=== PATIENT | male | born 1945 | race Hispanic/Latino ===

== ENCOUNTER 2022-01-11 12:53 | Outpatient (CLI) | payer SELFPAY, MEDICARE | END 2022-01-11 12:54 | disposition home or self-care (01) | LOC: CSHWCC 12:53 | PROVIDERS: ATTEND Nurse Practitioner Family | DX: T81.89XD Other complications of procedures, not elsewhere classified, subsequent encounter (principal) ==

== ENCOUNTER 2022-01-13 08:13 | Outpatient (CLI) | payer SELFPAY, MEDICARE | END 2022-01-13 08:14 | disposition home or self-care (01) | LOC: CSHWCC 08:13 | PROVIDERS: ATTEND Nurse Practitioner Family | DX: T81.89XD Other complications of procedures, not elsewhere classified, subsequent encounter (principal) ==

== ENCOUNTER 2022-01-16 13:37 | Outpatient (CLI) | payer SELFPAY, MEDICARE | END 2022-01-16 13:38 | disposition home or self-care (01) | LOC: CSHWCC 13:37 | PROVIDERS: ATTEND Nurse Practitioner Family | DX: T81.89XD Other complications of procedures, not elsewhere classified, subsequent encounter (principal); L89.891 Pressure ulcer of other site, stage 1; R60.0 Localized edema ==

== ENCOUNTER 2022-01-19 10:14 | Outpatient (CLI) | payer SELFPAY, MEDICARE | END 2022-01-19 10:15 | disposition home or self-care (01) | LOC: CSHWCC 10:14 | PROVIDERS: ATTEND Nurse Practitioner Family | DX: T81.89XD Other complications of procedures, not elsewhere classified, subsequent encounter (principal); L89.891 Pressure ulcer of other site, stage 1; R60.0 Localized edema ==

== ENCOUNTER 2022-01-27 08:07 | Outpatient (CLI) | payer MEDICARE | END 2022-01-27 08:08 | disposition home or self-care (01) | LOC: CSHWCC 08:07 | PROVIDERS: ATTEND Nurse Practitioner Family | DX: T81.89XD Other complications of procedures, not elsewhere classified, subsequent encounter (principal) | CPT/HCPCS: 11042; 36416; 87070; 87077; 87186; 87205; 99213; G0463 ==

== ENCOUNTER 2022-01-30 08:07 | Outpatient (CLI) | payer MEDICARE, SELFPAY | END 2022-01-30 08:08 | disposition home or self-care (01) | LOC: CSHWCC 08:07 | PROVIDERS: ATTEND Nurse Practitioner Family | DX: T87.89 Other complications of amputation stump (principal); L89.92 Pressure ulcer of unspecified site, stage 2; L89.891 Pressure ulcer of other site, stage 1; E11.621 Type 2 diabetes mellitus with foot ulcer; L97.424 Non-pressure chronic ulcer of left heel and midfoot with necrosis of bone; R60.0 Localized edema; Z89.422 Acquired absence of other left toe(s) | CPT/HCPCS: 36416 ==

== ENCOUNTER 2022-01-31 10:59 | Outpatient (CLI) | payer SELFPAY | END 2022-01-31 11:00 | disposition home or self-care (01) | LOC: CSHWCC 10:59 | PROVIDERS: ATTEND Nurse Practitioner Family | DX: T81.89XD Other complications of procedures, not elsewhere classified, subsequent encounter (principal); L89.891 Pressure ulcer of other site, stage 1; R60.0 Localized edema; L89.92 Pressure ulcer of unspecified site, stage 2 | CPT/HCPCS: 36416 ==

== ENCOUNTER 2022-02-01 08:13 | Outpatient (CLI) | payer SELFPAY | END 2022-02-01 08:14 | disposition home or self-care (01) | LOC: CSHWCC 08:13 | PROVIDERS: ATTEND Nurse Practitioner Family | DX: T81.89XD Other complications of procedures, not elsewhere classified, subsequent encounter (principal); E11.621 Type 2 diabetes mellitus with foot ulcer; L97.424 Non-pressure chronic ulcer of left heel and midfoot with necrosis of bone; L89.92 Pressure ulcer of unspecified site, stage 2; R60.0 Localized edema | CPT/HCPCS: 36416 ==

== ENCOUNTER 2022-02-02 11:43 | Outpatient (CLI) | payer SELFPAY | END 2022-02-02 11:44 | disposition home or self-care (01) | LOC: CSHWCC 11:43 | PROVIDERS: ATTEND Nurse Practitioner Family | DX: T81.89XD Other complications of procedures, not elsewhere classified, subsequent encounter (principal); E11.621 Type 2 diabetes mellitus with foot ulcer; L97.424 Non-pressure chronic ulcer of left heel and midfoot with necrosis of bone ==

== ENCOUNTER 2022-02-03 11:39 | Outpatient (CLI) | payer SELFPAY | END 2022-02-03 11:40 | disposition home or self-care (01) | LOC: CSHWCC 11:39 | PROVIDERS: ATTEND Nurse Practitioner Family | DX: T81.89XD Other complications of procedures, not elsewhere classified, subsequent encounter (principal); L89.891 Pressure ulcer of other site, stage 1; R60.0 Localized edema | CPT/HCPCS: 11042; 11045; 97605 ==

== ENCOUNTER 2022-02-06 09:02 | Outpatient (CLI) | payer SELFPAY | END 2022-02-06 09:03 | disposition home or self-care (01) | LOC: CSHWCC 09:02 | PROVIDERS: ATTEND Nurse Practitioner Family | DX: L89.891 Pressure ulcer of other site, stage 1 (principal); L89.92 Pressure ulcer of unspecified site, stage 2; T81.89XD Other complications of procedures, not elsewhere classified, subsequent encounter; E11.621 Type 2 diabetes mellitus with foot ulcer; L97.425 Non-pressure chronic ulcer of left heel and midfoot with muscle involvement without evidence of necrosis; R60.0 Localized edema | CPT/HCPCS: 29581; 97605 ==

== ENCOUNTER 2022-02-10 08:54 | Outpatient (CLI) | payer SELFPAY | END 2022-02-10 08:55 | disposition home or self-care (01) | LOC: CSHWCC 08:54 | PROVIDERS: ATTEND Nurse Practitioner Family | DX: L89.892 Pressure ulcer of other site, stage 2 (principal); L89.891 Pressure ulcer of other site, stage 1; T81.89XD Other complications of procedures, not elsewhere classified, subsequent encounter; E11.621 Type 2 diabetes mellitus with foot ulcer; L97.425 Non-pressure chronic ulcer of left heel and midfoot with muscle involvement without evidence of necrosis; R60.0 Localized edema ==

== ENCOUNTER 2022-02-14 13:05 | Outpatient (CLI) | payer SELFPAY | END 2022-02-14 13:06 | disposition home or self-care (01) | LOC: CSHWCC 13:05 | PROVIDERS: ATTEND Nurse Practitioner Family | DX: L89.92 Pressure ulcer of unspecified site, stage 2 (principal); L89.891 Pressure ulcer of other site, stage 1; T81.89XD Other complications of procedures, not elsewhere classified, subsequent encounter; E11.621 Type 2 diabetes mellitus with foot ulcer; L97.425 Non-pressure chronic ulcer of left heel and midfoot with muscle involvement without evidence of necrosis; R60.0 Localized edema ==

== ENCOUNTER 2022-02-17 11:21 | Outpatient (CLI) | payer SELFPAY | END 2022-02-17 11:22 | disposition home or self-care (01) | LOC: CSHWCC 11:21 | PROVIDERS: ATTEND Nurse Practitioner Family | DX: L89.892 Pressure ulcer of other site, stage 2 (principal); L89.891 Pressure ulcer of other site, stage 1; T81.89XD Other complications of procedures, not elsewhere classified, subsequent encounter; E11.621 Type 2 diabetes mellitus with foot ulcer; L97.425 Non-pressure chronic ulcer of left heel and midfoot with muscle involvement without evidence of necrosis; R60.0 Localized edema | CPT/HCPCS: 11042; 97605 ==

== ENCOUNTER 2022-02-27 14:58 | Outpatient (CLI) | payer SELFPAY | END 2022-02-27 14:59 | disposition home or self-care (01) | LOC: CSHWCC 14:58 | PROVIDERS: ATTEND Nurse Practitioner Family | DX: T81.89XD Other complications of procedures, not elsewhere classified, subsequent encounter (principal); L89.891 Pressure ulcer of other site, stage 1; R60.0 Localized edema | CPT/HCPCS: 29581 ==

== ENCOUNTER 2022-03-10 08:32 | Outpatient (CLI) | payer SELFPAY | END 2022-03-10 08:33 | disposition home or self-care (01) | LOC: CSHWCC 08:32 | PROVIDERS: ATTEND Nurse Practitioner Family | DX: T81.89XD Other complications of procedures, not elsewhere classified, subsequent encounter (principal); L89.92 Pressure ulcer of unspecified site, stage 2; E11.621 Type 2 diabetes mellitus with foot ulcer; L97.425 Non-pressure chronic ulcer of left heel and midfoot with muscle involvement without evidence of necrosis; R60.0 Localized edema | CPT/HCPCS: 29581; 97605; 99213; G0463 ==

== ENCOUNTER 2022-03-15 09:59 | Outpatient (CLI) | payer SELFPAY | END 2022-03-15 10:00 | disposition home or self-care (01) | LOC: CSHWCC 09:59 | PROVIDERS: ATTEND Preventive Medicine Undersea and Hyperbaric Medicine | DX: T81.89XD Other complications of procedures, not elsewhere classified, subsequent encounter (principal); L89.92 Pressure ulcer of unspecified site, stage 2; R60.0 Localized edema | CPT/HCPCS: 11042; 97605 ==

== ENCOUNTER 2022-03-24 08:05 | Outpatient (CLI) | payer SELFPAY | END 2022-03-24 08:06 | disposition home or self-care (01) | LOC: CSHWCC 08:05 | PROVIDERS: ATTEND Preventive Medicine Undersea and Hyperbaric Medicine | DX: L89.92 Pressure ulcer of unspecified site, stage 2 (principal); T81.89XD Other complications of procedures, not elsewhere classified, subsequent encounter; E11.621 Type 2 diabetes mellitus with foot ulcer; L97.425 Non-pressure chronic ulcer of left heel and midfoot with muscle involvement without evidence of necrosis; R60.0 Localized edema ==

== ENCOUNTER 2022-03-27 11:17 | Outpatient (CLI) | payer SELFPAY | END 2022-03-27 11:18 | disposition home or self-care (01) | LOC: CSHWCC 11:17 | PROVIDERS: ATTEND Preventive Medicine Undersea and Hyperbaric Medicine | DX: L89.92 Pressure ulcer of unspecified site, stage 2 (principal); E11.621 Type 2 diabetes mellitus with foot ulcer; L97.425 Non-pressure chronic ulcer of left heel and midfoot with muscle involvement without evidence of necrosis; R60.0 Localized edema | CPT/HCPCS: 97605 ==

== ENCOUNTER 2022-04-05 14:25 | Outpatient (CLI) | payer MEDICARE, SELFPAY | END 2022-04-05 14:26 | disposition home or self-care (01) | LOC: CSHWCC 14:25 | PROVIDERS: ATTEND Preventive Medicine Undersea and Hyperbaric Medicine | DX: L89.92 Pressure ulcer of unspecified site, stage 2 (principal); E11.621 Type 2 diabetes mellitus with foot ulcer; L97.425 Non-pressure chronic ulcer of left heel and midfoot with muscle involvement without evidence of necrosis; R60.0 Localized edema | CPT/HCPCS: 11042; 36416; 97605 ==

== ENCOUNTER 2022-04-19 08:34 | Outpatient (CLI) | payer SELFPAY | END 2022-04-19 08:35 | disposition home or self-care (01) | LOC: CSHWCC 08:34 | PROVIDERS: ATTEND Preventive Medicine Undersea and Hyperbaric Medicine | DX: L89.92 Pressure ulcer of unspecified site, stage 2 (principal); E11.621 Type 2 diabetes mellitus with foot ulcer; L97.425 Non-pressure chronic ulcer of left heel and midfoot with muscle involvement without evidence of necrosis; R60.0 Localized edema ==

== ENCOUNTER 2022-04-25 08:10 | Outpatient (CLI) | payer SELFPAY | END 2022-04-25 08:11 | disposition home or self-care (01) | LOC: CSHWCC 08:10 | PROVIDERS: ATTEND Preventive Medicine Undersea and Hyperbaric Medicine | DX: L89.622 Pressure ulcer of left heel, stage 2 (principal); E11.621 Type 2 diabetes mellitus with foot ulcer; L97.425 Non-pressure chronic ulcer of left heel and midfoot with muscle involvement without evidence of necrosis; R60.0 Localized edema | CPT/HCPCS: 29581; 97605 ==

== ENCOUNTER 2022-05-02 13:24 | Outpatient (CLI) | payer SELFPAY | END 2022-05-02 13:25 | disposition home or self-care (01) | LOC: CSHWCC 13:24 | PROVIDERS: ATTEND Nurse Practitioner Family | DX: L89.92 Pressure ulcer of unspecified site, stage 2 (principal); E11.621 Type 2 diabetes mellitus with foot ulcer; L97.425 Non-pressure chronic ulcer of left heel and midfoot with muscle involvement without evidence of necrosis; R60.0 Localized edema | CPT/HCPCS: 11042; 36416; 97605 ==

== ENCOUNTER 2022-05-17 08:33 | Outpatient (CLI) | payer SELFPAY | END 2022-05-17 08:34 | disposition home or self-care (01) | LOC: CSHWCC 08:33 | PROVIDERS: ATTEND Nurse Practitioner Family | DX: L89.92 Pressure ulcer of unspecified site, stage 2 (principal); E11.621 Type 2 diabetes mellitus with foot ulcer; L97.425 Non-pressure chronic ulcer of left heel and midfoot with muscle involvement without evidence of necrosis; R60.0 Localized edema | CPT/HCPCS: 36416 ==

== ENCOUNTER 2022-06-05 13:31 | Outpatient (CLI) | payer SELFPAY | END 2022-06-05 13:32 | disposition home or self-care (01) | LOC: CSHWCC 13:31 | PROVIDERS: ATTEND Nurse Practitioner Family | DX: L89.92 Pressure ulcer of unspecified site, stage 2 (principal); E11.621 Type 2 diabetes mellitus with foot ulcer; L97.425 Non-pressure chronic ulcer of left heel and midfoot with muscle involvement without evidence of necrosis; R60.0 Localized edema ==

== ENCOUNTER 2022-06-09 10:25 | Outpatient (CLI) | payer SELFPAY | END 2022-06-09 10:26 | disposition home or self-care (01) | LOC: CSHWCC 10:25 | PROVIDERS: ATTEND Nurse Practitioner Family | DX: L89.92 Pressure ulcer of unspecified site, stage 2 (principal); E11.621 Type 2 diabetes mellitus with foot ulcer; L97.425 Non-pressure chronic ulcer of left heel and midfoot with muscle involvement without evidence of necrosis; R60.0 Localized edema | CPT/HCPCS: 29581 ==

== ENCOUNTER 2022-06-12 09:30 | Outpatient (CLI) | payer SELFPAY | END 2022-06-12 09:31 | disposition home or self-care (01) | LOC: CSHWCC 09:30 | PROVIDERS: ATTEND Nurse Practitioner Family | DX: L89.92 Pressure ulcer of unspecified site, stage 2 (principal); E11.621 Type 2 diabetes mellitus with foot ulcer; L97.425 Non-pressure chronic ulcer of left heel and midfoot with muscle involvement without evidence of necrosis; R60.0 Localized edema | CPT/HCPCS: 29581 ==

== ENCOUNTER 2022-06-15 13:50 | Outpatient (CLI) | payer SELFPAY | END 2022-06-15 13:51 | disposition home or self-care (01) | LOC: CSHWCC 13:50 | PROVIDERS: ATTEND Nurse Practitioner Family | DX: L89.92 Pressure ulcer of unspecified site, stage 2 (principal); E11.621 Type 2 diabetes mellitus with foot ulcer; L97.425 Non-pressure chronic ulcer of left heel and midfoot with muscle involvement without evidence of necrosis; R60.0 Localized edema ==

== ENCOUNTER 2022-06-22 09:01 | Outpatient (CLI) | payer SELFPAY | END 2022-06-22 09:02 | disposition home or self-care (01) | LOC: CSHWCC 09:01 | PROVIDERS: ATTEND Nurse Practitioner Family | DX: L89.92 Pressure ulcer of unspecified site, stage 2 (principal); E11.621 Type 2 diabetes mellitus with foot ulcer; L97.425 Non-pressure chronic ulcer of left heel and midfoot with muscle involvement without evidence of necrosis; R60.0 Localized edema ==

== ENCOUNTER 2022-06-29 08:40 | Outpatient (CLI) | payer SELFPAY | END 2022-06-29 08:41 | disposition home or self-care (01) | LOC: CSHWCC 08:40 | PROVIDERS: ATTEND Nurse Practitioner Family | DX: L89.92 Pressure ulcer of unspecified site, stage 2 (principal); E11.621 Type 2 diabetes mellitus with foot ulcer; L97.425 Non-pressure chronic ulcer of left heel and midfoot with muscle involvement without evidence of necrosis; R60.0 Localized edema | CPT/HCPCS: 87070; 87077; 87186; 87205 ==

== ENCOUNTER 2022-07-06 13:38 | Outpatient (CLI) | payer SELFPAY | END 2022-07-06 13:39 | disposition home or self-care (01) | LOC: CSHWCC 13:38 | PROVIDERS: ATTEND Nurse Practitioner Family | DX: L89.92 Pressure ulcer of unspecified site, stage 2 (principal); E11.621 Type 2 diabetes mellitus with foot ulcer; L97.425 Non-pressure chronic ulcer of left heel and midfoot with muscle involvement without evidence of necrosis; R60.0 Localized edema ==

== ENCOUNTER 2022-07-13 08:07 | Outpatient (CLI) | payer SELFPAY | END 2022-07-13 08:08 | disposition home or self-care (01) | LOC: CSHWCC 08:07 | PROVIDERS: ATTEND Nurse Practitioner Family | DX: L89.92 Pressure ulcer of unspecified site, stage 2 (principal); E11.621 Type 2 diabetes mellitus with foot ulcer; L97.425 Non-pressure chronic ulcer of left heel and midfoot with muscle involvement without evidence of necrosis; R60.0 Localized edema ==

== ENCOUNTER 2022-07-20 09:09 | Outpatient (CLI) | payer SELFPAY | END 2022-07-20 09:10 | disposition home or self-care (01) | LOC: CSHWCC 09:09 | PROVIDERS: ATTEND Nurse Practitioner Family | DX: L89.92 Pressure ulcer of unspecified site, stage 2 (principal); E11.621 Type 2 diabetes mellitus with foot ulcer; L97.425 Non-pressure chronic ulcer of left heel and midfoot with muscle involvement without evidence of necrosis; R60.0 Localized edema ==

== ENCOUNTER 2022-07-27 09:15 | Outpatient (CLI) | payer SELFPAY | END 2022-07-27 09:16 | disposition home or self-care (01) | LOC: CSHWCC 09:15 | PROVIDERS: ATTEND Nurse Practitioner Family | DX: L89.92 Pressure ulcer of unspecified site, stage 2 (principal); E11.621 Type 2 diabetes mellitus with foot ulcer; L97.425 Non-pressure chronic ulcer of left heel and midfoot with muscle involvement without evidence of necrosis; R60.0 Localized edema | CPT/HCPCS: 29581 ==

== ENCOUNTER 2022-08-03 08:39 | Outpatient (CLI) | payer SELFPAY | END 2022-08-03 08:40 | disposition home or self-care (01) | LOC: CSHWCC 08:39 | PROVIDERS: ATTEND Nurse Practitioner Family | DX: L89.92 Pressure ulcer of unspecified site, stage 2 (principal); E11.621 Type 2 diabetes mellitus with foot ulcer; L97.425 Non-pressure chronic ulcer of left heel and midfoot with muscle involvement without evidence of necrosis; R60.0 Localized edema ==

== ENCOUNTER 2022-08-14 15:32 | Outpatient (CLI) | payer SELFPAY | END 2022-08-14 15:33 | disposition home or self-care (01) | LOC: CSHWCC 15:32 | PROVIDERS: ATTEND Nurse Practitioner Family | DX: L89.92 Pressure ulcer of unspecified site, stage 2 (principal); E11.621 Type 2 diabetes mellitus with foot ulcer; L97.425 Non-pressure chronic ulcer of left heel and midfoot with muscle involvement without evidence of necrosis; R60.0 Localized edema | CPT/HCPCS: 29581 ==

== ENCOUNTER 2022-08-21 08:08 | Outpatient (CLI) | payer SELFPAY | END 2022-08-21 08:09 | disposition home or self-care (01) | LOC: CSHWCC 08:08 | PROVIDERS: ATTEND Nurse Practitioner Family | DX: L89.92 Pressure ulcer of unspecified site, stage 2 (principal); E11.621 Type 2 diabetes mellitus with foot ulcer; L97.425 Non-pressure chronic ulcer of left heel and midfoot with muscle involvement without evidence of necrosis; R60.0 Localized edema | CPT/HCPCS: 29581 ==

== ENCOUNTER 2022-08-28 08:09 | Outpatient (CLI) | payer SELFPAY | END 2022-08-28 08:10 | disposition home or self-care (01) | LOC: CSHWCC 08:09 | PROVIDERS: ATTEND Nurse Practitioner Family | DX: L89.92 Pressure ulcer of unspecified site, stage 2 (principal); E11.621 Type 2 diabetes mellitus with foot ulcer; L97.425 Non-pressure chronic ulcer of left heel and midfoot with muscle involvement without evidence of necrosis; R60.0 Localized edema | CPT/HCPCS: 29581 ==

== ENCOUNTER 2022-09-04 08:23 | Outpatient (CLI) | payer SELFPAY | END 2022-09-04 08:24 | disposition home or self-care (01) | LOC: CSHWCC 08:23 | PROVIDERS: ATTEND Nurse Practitioner Family | DX: L89.92 Pressure ulcer of unspecified site, stage 2 (principal); E11.621 Type 2 diabetes mellitus with foot ulcer; L97.425 Non-pressure chronic ulcer of left heel and midfoot with muscle involvement without evidence of necrosis; R60.0 Localized edema | CPT/HCPCS: 11042 ==

== ENCOUNTER 2022-09-12 08:15 | Outpatient (CLI) | payer SELFPAY | END 2022-09-12 08:16 | disposition home or self-care (01) | LOC: CSHWCC 08:15 | PROVIDERS: ATTEND Nurse Practitioner Family | DX: L89.892 Pressure ulcer of other site, stage 2 (principal); E11.621 Type 2 diabetes mellitus with foot ulcer; L97.425 Non-pressure chronic ulcer of left heel and midfoot with muscle involvement without evidence of necrosis; R60.0 Localized edema | CPT/HCPCS: 11042; 29581; 99213; G0463 ==

== ENCOUNTER 2022-09-15 08:45 | Outpatient (CLI) | payer SELFPAY | END 2022-09-15 08:46 | disposition home or self-care (01) | LOC: CSHWCC 08:45 | PROVIDERS: ATTEND Nurse Practitioner Family | DX: L89.92 Pressure ulcer of unspecified site, stage 2 (principal); E11.621 Type 2 diabetes mellitus with foot ulcer; L97.425 Non-pressure chronic ulcer of left heel and midfoot with muscle involvement without evidence of necrosis; R60.0 Localized edema | CPT/HCPCS: 29581 ==

== ENCOUNTER 2022-09-20 09:08 | Outpatient (CLI) | payer SELFPAY | END 2022-09-20 09:09 | disposition home or self-care (01) | LOC: CSHWCC 09:08 | PROVIDERS: ATTEND Nurse Practitioner Family | DX: L89.92 Pressure ulcer of unspecified site, stage 2 (principal); R60.0 Localized edema; E11.621 Type 2 diabetes mellitus with foot ulcer; L97.425 Non-pressure chronic ulcer of left heel and midfoot with muscle involvement without evidence of necrosis | CPT/HCPCS: 29581 ==

== ENCOUNTER 2022-10-03 08:20 | Outpatient (CLI) | payer SELFPAY | END 2022-10-03 08:21 | disposition home or self-care (01) | LOC: CSHWCC 08:20 | PROVIDERS: ATTEND Nurse Practitioner Family | DX: E11.621 Type 2 diabetes mellitus with foot ulcer (principal); L97.412 Non-pressure chronic ulcer of right heel and midfoot with fat layer exposed; L97.425 Non-pressure chronic ulcer of left heel and midfoot with muscle involvement without evidence of necrosis; R60.0 Localized edema ==

== ENCOUNTER 2022-11-08 11:19 | Outpatient (CLI) | payer MEDICARE, SELFPAY | END 2022-11-08 11:20 | disposition home or self-care (01) | LOC: CSHWCC 11:19 | PROVIDERS: ATTEND Nurse Practitioner Family | DX: E11.621 Type 2 diabetes mellitus with foot ulcer (principal); L97.412 Non-pressure chronic ulcer of right heel and midfoot with fat layer exposed; R60.0 Localized edema | CPT/HCPCS: 99213; G0463 ==

== ENCOUNTER 2023-01-31 15:29 | Outpatient (CLI) | payer MEDICARE, SELFPAY | END 2023-01-31 15:30 | disposition home or self-care (01) | LOC: CSHWCC 15:29 | PROVIDERS: ATTEND Nurse Practitioner Family | DX: E11.621 Type 2 diabetes mellitus with foot ulcer (principal); L97.412 Non-pressure chronic ulcer of right heel and midfoot with fat layer exposed; R60.9 Edema, unspecified | CPT/HCPCS: 11043; 36416; 99213; G0463 ==

== ENCOUNTER 2023-03-07 09:31 | Outpatient (CLI) | payer SELFPAY | END 2023-03-07 09:32 | disposition home or self-care (01) | LOC: CSHWCC 09:31 | PROVIDERS: ATTEND Nurse Practitioner Family | DX: E11.621 Type 2 diabetes mellitus with foot ulcer (principal); L97.412 Non-pressure chronic ulcer of right heel and midfoot with fat layer exposed; R60.9 Edema, unspecified | CPT/HCPCS: 11043 ==